=== PATIENT | male | born 1990 | race Caucasian/White ===

== ENCOUNTER 2022-11-11 14:43 | Emergency (ER) | payer OTHER ==
[~2022-11-11] VITALS: Ht 188 cm; Wt 115.2 kg
[2022-11-11 15:23] VITALS: BP 142/84; PULSE 79; RESP 18; TEMP 96.8; O2SAT 96
[2022-11-11] MEDS ORDERED: IBUP-1456 PO (15:37)
[2022-11-11] MEDS ORDERED: LIDO5PAD8 EX (15:37)
== END 2022-11-11 15:52 | disposition home or self-care (01) ==
LOC: ER 14:43
DX: S29.012A Strain of muscle and tendon of back wall of thorax, initial encounter (principal); R07.89 Other chest pain; Z79.1 Long term (current) use of non-steroidal anti-inflammatories (NSAID); Z79.899 Other long term (current) drug therapy; X58.XXXA Exposure to other specified factors, initial encounter; Y93.89 Activity, other specified; Y92.89 Other specified places as the place of occurrence of the external cause; Y99.8 Other external cause status
CPT/HCPCS: 71046

== ENCOUNTER 2023-07-25 15:23 | Emergency (ER) | payer OTHER ==
[~2023-07-25] VITALS: Ht 188 cm; Wt 117.2 kg
[~2023-07-25 15:23] MED LIST: IBUP-1456 PO; LIDO5PAD12 EX
[2023-07-25 18:36] VITALS: BP 124/83; PULSE 105; RESP 18; TEMP 98; O2SAT 95
[2023-07-25] MEDS ORDERED: IBUP-1456 PO (19:05)
[2023-07-25] MEDS: cefTRIAXone SOD 1,000 MG VL IM ONE (19:05)
[2023-07-25] MEDS ORDERED: PRED20TA2 PO (19:05)
[2023-07-25] MEDS ORDERED: AMOX875T4 PO (19:05)
== END 2023-07-25 19:11 | disposition home or self-care (01) ==
LOC: ER 15:23
DX: H66.93 Otitis media, unspecified, bilateral (principal); J06.9 Acute upper respiratory infection, unspecified
CPT/HCPCS: 96372; 99283; J0696